=== PATIENT | female | born 1990 | race Caucasian/White ===

== ENCOUNTER 2018-12-06 12:54 | Emergency (ER) | payer BC, SELFPAY ==
[2018-12-06 13:10] VITALS: BP 111/70; PULSE 77; RESP 18; O2SAT 100
[2018-12-06] MEDS: Acetaminophen 500 MG TAB (13:23)
--- NOTE | 2018-12-06 14:02 | DI.RAD_ITS ---
SYMPTOMS/DIAGNOSIS: MEDIAL AND LATERAL MALLEOLUS PAIN LEFT ANKLE: Three views. No acute fracture or dislocation is seen. There is mild soft tissue swelling about the ankle particularly laterally. No radiopaque foreign bodies are seen in the soft tissues. IMPRESSION: No acute fracture or dislocation.
--- NOTE | 2018-12-06 14:33 | DI.VRAD_ITS ---
EXAM: XR Left Ankle EXAM DATE/TIME: 12/06/2018 1:15 PM CLINICAL HISTORY: 28 years old, female; Pain; Patient HX: Trauma left ankle, injury today. TECHNIQUE: Imaging protocol: XR Left ankle. Views: 3 or more views. COMPARISON: No relevant prior studies available. FINDINGS: The alignment is normal. The ankle mortise is preserved. No acute fracture or dislocation. There is lateral soft tissue swelling. IMPRESSION: No fracture. Dictated and Authenticated by: Angel Quick MD. Ordering:MARK Nunez MD
--- NOTE | 2018-12-06 14:59 | W.ED.GENAD ---
Discharge Plan Disposition Patient Disposition: HOME Condition: Good Discharge Details Chief Complaint: Orthopedic Clinical Impression: Left ankle sprain Primary Care Provider: Aylin,Local ED Provider: Enrique Navarro Home Meds and New Rx's Prescriptions: No Action No Known Home Meds RF: 0 Discharge Instructions Instructions: Ankle Sprain (ED) Additional Instructions: Please take Tylenol and Motrin as needed for the pain. Please use the crutches in the walking boot. Please stay off of the foot for the next 1 to 2 weeks. If you are having no improvement over this time, you may need to be seen by an orthopedic surgeon in [place]. If you notice any worsening of your symptoms, or any new symptoms such as worsening pain in your ankle, change in color or sensation in your foot vomiting, diarrhea, fever, chills, shortness of breath, chest pain, numbness, weakness, or fainting , please return immediately to the emergency department for reevaluation. Please follow up with your primary care provider as soon as possible for reassessment and reevaluation. As always, it was a pleasure participating in your medical care today. Discharge Data Discharge Date/Time-TO BE ENTERED AT DEPARTURE: 12/06/18 15:07 Medical Decision Making 88-year-old female presents after an inversion injury to her left ankle. Exam demonstrates minimal swelling over the lateral malleoli, mild tenderness to the medial and lateral malleoli, with no significant ligamentous laxity that can be appreciated. Normal neurovascular exam. X-ray shows no evidence of fracture per virtual radiology. Walking boot was given, crutches were given, patient's pain is well controlled. Recommend close follow-up with her orthopedic surgeon in [facility], and close follow-up with her PCP. Recommend continued R.I.C.E therapy. Discussed red flags which to return. Diagnosis ankle sprain I have extensively reviewed the treatment plan and discharge instructions with the patient. I have addressed all patient concerns at this time. The patient was made aware of what symptoms to monitor for that would warrant a return to the emergency department. Discussed the plan with the patient, they demonstrate verbal understanding and agreement with our assessment and plan at this time. CLINICAL HISTORY: 28 years old, female; Pain; Patient HX: Trauma left ankle, injury today. Technique: Imaging protocol: XR Left ankle. Views: 3 or more views. Comparison: No relevant prior studies available. Findings: The alignment is normal. The ankle mortise is preserved. No acute fracture or dislocation. There is lateral soft tissue swelling. Impression: No fracture. Dictated and Authenticated by: Angel Quick MD. Ordering:MARK Nunez MD [facility] General Date/Time Provider Initiated Documentation: 12/06/18 13:10. HPI Narrative: This is a pleasant 28-year-old female with no past medical history who presents today for left ankle pain. Patient states that she was walking when she everted her left ankle. She had notable pain in the lateral and medial component since then. Worse with movement, improved by nothing. It occurred roughly 1 to 2 hours ago. He has been limping because of this. She denies any numbness tingling, or pain in her knee or foot otherwise. She denies any other complaints. No other modifying factors. Related Data Home Medications Medication Instructions Recorded Confirmed Unknown [No Known Home Meds] 12/06/18 12/06/18 Allergies Allergy/AdvReac Type Severity Reaction Status Date / Time No Known Allergies Allergy Unverified 12/06/18 13:16 General Stated Complaint: Orthopedic MARLY: 3 Review of Systems Review of Systems All systems reviewed & are unremarkable except as noted in HPI and below PFSH Social History Smoking/Tobacco Use Status: Never Substance use type: does not use Do you feel safe at home: Yes Do you feel safe in your relationship?: Yes Exam Narrative Exam Narrative: 1.Const: Well-nourished, Well-developed, appearing stated age 2.Eyes: PERRL, no conjunctival injection, and symmetrical lids. 3.ENT: Atraumatic external nose and ears. Moist MM. Neck: Symmetric, trachea midline, No thyromegaly. 4.CVS: +S1/S2, No murmurs or gallops. Peripheral pulses 2+ and equal in all extremities. Brisk capillary refill in all extremities. 5.RESP: Unlabored respiratory effort. Clear to auscultation bilaterally. No wheezes rales or rhonchi 6.GI: Soft, Nontender/Nondistended, No hepatosplenomegaly. No guarding or rebound. 7.MSK: Normocephalic Extremities w/o deformity.No cyanosis or clubbing, mild tenderness at the lateral and medial malleoli. No significant severe swelling except for minimal swelling of the lateral malleoli. No joint laxity with eversion inversion or plantar or dorsiflexion. Normal sensation, good two-point discrimination in the foot, brisk capillary refill, +2 dorsalis pedis bilaterally. No pain or tenderness in the church or knee. 8.Skin: Warm, Dry. No rashes or lesions. 9.Neuro: java consultant II-XII grossly intact. Sensation grossly intact, no focal neurologic deficits. 10.Psych: (AAO) x3. Appropriate mood and affect Course Vital Signs Pulse 77 12/06/18 13:10 Respiratory Rate 18 12/06/18 13:10 Blood Pressure 111/70 12/06/18 13:10 Pulse Oximetry 100 12/06/18 13:10 Pulse 77 12/06/18 13:10 Respiratory Rate 18 12/06/18 13:10 Respiratory Effort Non-Labored 12/06/18 13:12 Blood Pressure 111/70 12/06/18 13:10 Blood Pressure Position Sitting 12/06/18 13:10 Pulse Oximetry 100 12/06/18 13:10 Oxygen Delivery Method Room Air 12/06/18 13:10 Oxygen Flow Rate 0 12/06/18 13:10 Pain Level 6 12/06/18 13:10
--- NOTE | 2018-12-06 15:02 | ED.GENADUL_ITS ---
Discharge Plan Disposition Patient Disposition: HOME Condition: Good Discharge Details Chief Complaint: Orthopedic Clinical Impression: Left ankle sprain Primary Care Provider: Aylin,Local ED Provider: Enrique Navarro Home Meds and New Rx's Prescriptions: No Action No Known Home Meds RF: 0 Discharge Instructions Instructions: Ankle Sprain (ED) Additional Instructions: Please take Tylenol and Motrin as needed for the pain. Please use the crutches in the walking boot. Please stay off of the foot for the next 1 to 2 weeks. If you are having no improvement over this time, you may need to be seen by an orthopedic surgeon in [place]. If you notice any worsening of your symptoms, or any new symptoms such as worsening pain in your ankle, change in color or sensation in your foot vomiting, diarrhea, fever, chills, shortness of breath, chest pain, numbness, weakness, or fainting , please return immediately to the emergency department for reevaluation. Please follow up with your primary care provider as soon as possible for reassessment and reevaluation. As always, it was a pleasure participating in your medical care today. Discharge Data Discharge Date/Time-TO BE ENTERED AT DEPARTURE: 12/06/18 15:07 Medical Decision Making 88-year-old female presents after an inversion injury to her left ankle. Exam demonstrates minimal swelling over the lateral malleoli, mild tenderness to the medial and lateral malleoli, with no significant ligamentous laxity that can be appreciated. Normal neurovascular exam. X-ray shows no evidence of fracture per virtual radiology. Walking boot was given, crutches were given, patient's pain is well controlled. Recommend close follow-up with her orthopedic surgeon in [facility], and close follow-up with her PCP. Recommend continued R.I.C.E therapy. Discussed red flags which to return. Diagnosis ankle sprain I have extensively reviewed the treatment plan and discharge instructions with the patient. I have addressed all patient concerns at this time. The patient was made aware of what symptoms to monitor for that would warrant a return to the emergency department. Discussed the plan with the patient, they demonstrate verbal understanding and agreement with our assessment and plan at this time. CLINICAL HISTORY: 28 years old, female; Pain; Patient HX: Trauma left ankle, injury today. Technique: Imaging protocol: XR Left ankle. Views: 3 or more views. Comparison: No relevant prior studies available. Findings: The alignment is normal. The ankle mortise is preserved. No acute fracture or dislocation. There is lateral soft tissue swelling. Impression: No fracture. Dictated and Authenticated by: Angel Quick MD. Ordering:MARK Nunez MD [facility] General Date/Time Provider Initiated Documentation: 12/06/18 13:10 . HPI Narrative: This is a pleasant 28-year-old female with no past medical history who presents today for left ankle pain. Patient states that she was walking when she everted her left ankle. She had notable pain in the lateral and medial component since then. Worse with movement, improved by nothing. It occurred roughly 1 to 2 hours ago. He has been limping because of this. She denies any numbness tingling, or pain in her knee or foot otherwise. She denies any other complaints. No other modifying factors. Related Data Home Medications Medication Instructions Recorded Confirmed Unknown [No Known Home Meds] 12/06/18 12/06/18 Allergies Allergy/AdvReac Type Severity Reaction Status Date / Time No Known Allergies Allergy Unverified 12/06/18 13:16 General Stated Complaint: Orthopedic MARLY: 3 Review of Systems Review of Systems All systems reviewed & are unremarkable except as noted in HPI and below PFSH Social History Smoking/Tobacco Use Status: Never Substance use type: does not use Do you feel safe at home: Yes Do you feel safe in your relationship?: Yes Exam Narrative Exam Narrative: 1.Const: Well-nourished, Well-developed, appearing stated age 2.Eyes: PERRL, no conjunctival injection, and symmetrical lids. 3.ENT: Atraumatic external nose and ears. Moist MM. Neck: Symmetric, trachea midline, No thyromegaly. 4.CVS: +S1/S2, No murmurs or gallops. Peripheral pulses 2+ and equal in all extremities. Brisk capillary refill in all extremities. 5.RESP: Unlabored respiratory effort. Clear to auscultation bilaterally. No wheezes rales or rhonchi 6.GI: Soft, Nontender/Nondistended, No hepatosplenomegaly. No guarding or rebound. 7.MSK: Normocephalic Extremities w/o deformity.No cyanosis or clubbing, mild tenderness at the lateral and medial malleoli. No significant severe swelling except for minimal swelling of the lateral malleoli. No joint laxity with eversion inversion or plantar or dorsiflexion. Normal sensation, good two-point discrimination in the foot, brisk capillary refill, +2 dorsalis pedis bilaterally. No pain or tenderness in the church or knee. 8.Skin: Warm, Dry. No rashes or lesions. 9.Neuro: health plan advisor II-XII grossly intact. Sensation grossly intact, no focal neurolog ic deficits. 10.Psych: (AAO) x3. Appropriate mood and affect Course Vital Signs Pulse 77 12/06/18 13:10 Respiratory Rate 18 12/06/18 13:10 Blood Pressure 111/70 12/06/18 13:10 Pulse Oximetry 100 12/06/18 13:10 Pulse 77 12/06/18 13:10 Respiratory Rate 18 12/06/18 13:10 Respiratory Effort Non-Labored 12/06/18 13:12 Blood Pressure 111/70 12/06/18 13:10 Blood Pressure Position Sitting 12/06/18 13:10 Pulse Oximetry 100 12/06/18 13:10 Oxygen Delivery Method Room Air 12/06/18 13:10 Oxygen Flow Rate 0 12/06/18 13:10 Pain Level 6 12/06/18 13:10
== END 2018-12-06 15:07 | disposition home or self-care (01) ==
PROVIDERS: Emergency Provider Student in an Organized Health Care Education/Training Program
DX: S93.402A Sprain of unspecified ligament of left ankle, initial encounter (principal); V18.0XXA Pedal cycle driver injured in noncollision transport accident in nontraffic accident, initial encounter; Y93.55 Activity, bike riding
CPT/HCPCS: 29515; 99283; 73610; E0114; L4361